=== PATIENT | male | born 1970 | race Caucasian/White ===

== ENCOUNTER 2022-06-17 07:51 | Day surgery (SDC) | payer BC ==
[2022-06-10 12:03] VITALS: BMI 21.2
[2022-06-17 08:11] VITALS: RESP 18
[2022-06-17 09:20] VITALS: TEMP 97
[2022-06-17 09:49] VITALS: BP 105/55; PULSE 57
== END 2022-06-17 09:51 | disposition home or self-care (01) ==
LOC: FASU-ENDO 07:51
PROVIDERS: ATTEND Internal Medicine Gastroenterology
PROC: 0DBK8ZX Excision of Ascending Colon, Via Natural or Artificial Opening Endoscopic, Diagnostic (ICD-10-PCS; principal; 2022-06-17 08:58)
DX: Z12.11 Encounter for screening for malignant neoplasm of colon (principal); D12.2 Benign neoplasm of ascending colon
CPT/HCPCS: 88305-TC